=== PATIENT | male | born 1980 | race African-American/Black ===

== ENCOUNTER 2020-07-09 17:52 | Inpatient (IN) | payer SELFPAY ==
[~2020-07-09] VITALS: Ht 188 cm; Wt 72.6 kg
[2020-07-09] MEDS ORDERED: SODIUM CHLORIDE 0.9% 1,000 ML IV ONE (18:23)
[2020-07-09 18:47] LABS: CLARITY URINE CLEAR (CLEAR); COLOR URINE YELLOW (YELLOW); KETONES URINE 4+ (NEGATIVE); LEUKOCYTE ESTERASE URINE NEGATIVE (NEGATIVE); NITRITE URINE NEGATIVE (NEGATIVE); OCCULT BLOOD URINE NEGATIVE (NEGATIVE); PROTEIN URINE NEGATIVE (NEGATIVE); SPECIFIC GRAVITY URINE 1.029 (1.005-1.030); UROBILINOGEN URINE 0.2 E.U./dL (0.2-1.0)
[2020-07-09 18:53] LABS: EOSINOPHILS % 0.4 % (0.0-5.0); HEMATOCRIT. 41.5 % (42.0-52.0); HEMOGLOBIN. 13.4 g/dL (14.0-18.0); LYMPHOCYTES % 12.4 % (20.0-50.0); MEAN CORPUSCULAR HEMOGLOBIN 31.2 pg (28.0-32.0); MEAN CORPUSCULAR VOLUME 96.4 fL (80.0-94.0); MEAN PLATELET VOLUME 9.4 fl (7.4-10.4); MONOCYTES % 7.9 % (2.0-8.0); NEUTROPHILS % 78.3 % (40.0-76.0); PLATELET 228 x1000/uL (130-400); RED BLOOD CELL COUNT 4.31 mill/uL (4.7-6.1); RED CELL DISTRIBUTION WIDTH 14.1 % (11.6-14.6)
[2020-07-09 18:56] LABS: CHLORIDE 92 mEq/L (98-107)
[2020-07-09 19:18] LABS: PROTHROMBIN TIME 10.1 sec (9.6-11.0)
[2020-07-09] MEDS ORDERED: INSULIN REGULAR (DRIP) 100 UNITS in SODIUM CHLORIDE 0.9% 100 ML IV ONE (19:28)
[2020-07-09 20:16] LABS: BG BASE EXCESS -15.5 mmol/L (-2.0-2.0); BG CARBOXYHEMOGLOBIN 1.9 % (0.5-1.5); BG DEOXYHEMOGLOBIN 2.6 % (0.0-5.0); BG FRACTION INSPIRED OXYGEN 21; BG HCO3 ACT 10.3 mmol/L (22.0-26.0); BG METHEMOGLOBIN 0.4 % (0.0-1.5); BG OXYGEN SATURATION 97.3 % (92.0-98.5); BG OXYHEMOGLOBIN 95.1 % (94.0-97.0); BG PCO2 25.1 mmHg (35.0-45.0); BG PH 7.229 (7.350-7.450); BG PO2 106.2 mmHg (75.0-100.0); BG SAMPLE SITE RIGHT RADIAL; BG TOTAL HEMOGLOBIN 13.8 g/dL (12.0-18.0); BG VENT MODE ROOM AIR
[2020-07-09 20:44] LABS: CHLORIDE 95 mEq/L (98-107)
[2020-07-09 20:50] LABS: PHOSPHORUS 4.1 mg/dL (2.5-4.9)
[2020-07-10] MEDS ORDERED: CALCIUM CARBONATE 1250MG TABLET (500MG ELEMENTAL CALCIUM) PO ONE (00:15)
[2020-07-10 00:16] LABS: CHLORIDE 105 mEq/L (98-107)
[2020-07-10 02:17] LABS: CHLORIDE 107 mEq/L (98-107)
[2020-07-10 04:00] VITALS: BP 130/77
[2020-07-10 04:45] LABS: BASOPHILS % 1.4 % (0.0-2.0); EOSINOPHILS % 1.2 % (0.0-5.0); HEMATOCRIT. 38.6 % (42.0-52.0); HEMOGLOBIN. 13.1 g/dL (14.0-18.0); MEAN CORPUSCULAR HEMOGLOBIN 31.7 pg (28.0-32.0); MEAN CORPUSCULAR VOLUME 93.2 fL (80.0-94.0); MEAN PLATELET VOLUME 8.4 fl (7.4-10.4); MONOCYTES % 10.1 % (2.0-8.0); NEUTROPHILS % 66.3 % (40.0-76.0); PLATELET 240 x1000/uL (130-400); RED BLOOD CELL COUNT 4.14 mill/uL (4.7-6.1); RED CELL DISTRIBUTION WIDTH 14.2 % (11.6-14.6)
[2020-07-10 04:50] LABS: CHLORIDE 107 mEq/L (98-107)
[2020-07-10 05:06] VITALS: BP 130/77
[2020-07-10] MEDS ORDERED: DEXTROSE 50% WATER 50ML SYRINGE IV PRN ×2 (06:00)
[2020-07-10] MEDS ORDERED: ONDANSETRON HCL 4MG/2ML INJ IV PRN (06:00)
[2020-07-10] MEDS ORDERED: INSNPH SUBCUT (06:00)
[2020-07-10] MEDS: BLOOD SUGAR DIAGNOSTIC STRIP TEST SCH ×4 (06:36→21:24)
[2020-07-10] MEDS ORDERED: BLOOD SUGAR DIAGNOSTIC STRIP TEST SCH (07:20)
[2020-07-10] MEDS ORDERED: INSULIN LISPRO 100 UNITS/ML SUBCUT SCH (07:50)
[2020-07-10] MEDS ORDERED: METFORMIN HCL 500MG TABLET PO SCH (07:50)
[2020-07-10] MEDS ORDERED: INSULIN LISPRO (LOW DOSE) 100 UNITS/ML SUBCUT SCH (07:50)
[2020-07-10 08:00] VITALS: BP 122/63
[2020-07-10] MEDS: FAMOTIDINE 20MG TABLET PO SCH ×2 (08:19→21:24)
[2020-07-10] MEDS: METFORMIN HCL 500MG TABLET PO SCH ×2 (08:19→17:32)
[2020-07-10] MEDS: INSULIN LISPRO 100 UNITS/ML SUBCUT SCH ×5 (08:21→21:00)
[2020-07-10] MEDS ORDERED: ENOXAPARIN 40MG/0.4ML SYR SUBCUT SCH (09:00)
[2020-07-10] MEDS ORDERED: LANTUSUD SUBCUT (09:16)
[2020-07-10] MEDS: ENOXAPARIN 40MG/0.4ML SYR SUBCUT SCH (09:48)
[2020-07-10] MEDS ORDERED: INSULIN GLARGINE UD 100 UNITS/ML SYR SUBCUT SCH ×3 (10:00→22:00)
[2020-07-10 12:00] VITALS: BP 123/57
[2020-07-10 12:16] LABS: CHLORIDE 100 mEq/L (98-107)
[2020-07-10 12:26] LABS: LDL CHOLESTEROL 73 mg/dL (5-100)
[2020-07-10 12:27] LABS: HDL CHOLESTEROL 64 mg/dL (40-59)
[2020-07-10 13:22] LABS: BASOPHILS % 1.2 % (0.0-2.0); EOSINOPHILS % 1.5 % (0.0-5.0); HEMATOCRIT. 37.5 % (42.0-52.0); HEMOGLOBIN. 12.5 g/dL (14.0-18.0); LYMPHOCYTES % 19.8 % (20.0-50.0); MEAN CORPUSCULAR HEMOGLOBIN 31.7 pg (28.0-32.0); MEAN PLATELET VOLUME 9.3 fl (7.4-10.4); MONOCYTES % 8.8 % (2.0-8.0); NEUTROPHILS % 68.7 % (40.0-76.0); PLATELET 217 x1000/uL (130-400); RED BLOOD CELL COUNT 3.95 mill/uL (4.7-6.1); RED CELL DISTRIBUTION WIDTH 14.7 % (11.6-14.6)
[2020-07-10] MEDS ORDERED: INSULIN LISPRO 100 UNITS/ML SUBCUT NR (14:00)
[2020-07-10] MEDS: KETOROLAC 30MG/ML VIAL IV PRN ×2 (14:02→21:25)
[2020-07-10 16:00] VITALS: BP 138/71
[2020-07-10 16:27] LABS: CHLORIDE 101 mEq/L (98-107)
[2020-07-10] MEDS: SODIUM CHLORIDE 0.9% 1,000 ML IV SCH (17:36)
[2020-07-10 19:04] LABS: PHOSPHORUS 2.5 mg/dL (2.5-4.9)
[2020-07-10 20:00] VITALS: BP 135/75
[2020-07-10 21:43] LABS: CHLORIDE 106 mEq/L (98-107)
[2020-07-11] VITALS: BP 118/72
[2020-07-11] MEDS: SODIUM CHLORIDE 0.9% 1,000 ML IV SCH ×2 (00:06→08:30)
[2020-07-11 00:15] LABS: *AMPHETAMINES SCREEN URINE NEGATIVE (NEGATIVE); *BARBITURATES SCREEN URINE NEGATIVE (NEGATIVE); *BENZODIAZEPINES SCREEN URINE NEGATIVE (NEGATIVE); *COCAINE SCREEN URINE PRESUMTIVE POSITIVE (NEGATIVE); METHADONE URINE SCREEN NEGATIVE (NEGATIVE)
[2020-07-11 00:16] LABS: CANNABINOID URINE SCREEN PRESUMTIVE POSITIVE (NEGATIVE); OPIATES URINE SCREEN NEGATIVE (NEGATIVE); PHENCYCLIDINE URINE SCREEN PRESUMTIVE POSITIVE (NEGATIVE)
[2020-07-11 04:00] VITALS: BP 103/51
[2020-07-11] MEDS: KETOROLAC 30MG/ML VIAL IV PRN (05:09)
[2020-07-11 06:45] LABS: CHLORIDE 109 mEq/L (98-107)
[2020-07-11] MEDS: INSULIN LISPRO 100 UNITS/ML SUBCUT SCH ×3 (07:20→11:58)
[2020-07-11] MEDS: BLOOD SUGAR DIAGNOSTIC STRIP TEST SCH ×2 (07:22→11:57)
[2020-07-11 08:03] VITALS: BP 119/78
[2020-07-11] MEDS ORDERED: POTASSIUM CHLORIDE 20MEQ TABLET SR PO NR (09:00)
[2020-07-11] MEDS: ENOXAPARIN 40MG/0.4ML SYR SUBCUT SCH (09:04)
[2020-07-11] MEDS: FAMOTIDINE 20MG TABLET PO SCH (09:04)
[2020-07-11] MEDS: METFORMIN HCL 500MG TABLET PO SCH (09:04)
[2020-07-11] MEDS ORDERED: INSULIN GLARGINE UD 100 UNITS/ML SYR SUBCUT SCH (10:00)
[2020-07-11 10:59] VITALS: BP 119/78
[2020-07-11 11:44] VITALS: BP 136/77
== END 2020-07-11 15:13 | disposition home or self-care (01) | DRG 420 ==
LOC: ER 17:52 → CANRESERV 07-10 03:32 → ENRESERV 07-10 03:32 → EDBEDREQTM 07-10 04:25 → EDBEDREQSVC 07-10 04:25 → ENRESERV 07-10 04:29 → 6WST 07-10 05:20
PROVIDERS: ADMIT Internal Medicine; ATTEND Internal Medicine
DX: E10.10 Type 1 diabetes mellitus with ketoacidosis without coma (principal); D64.9 Anemia, unspecified; E87.1 Hypo-osmolality and hyponatremia; E87.8 Other disorders of electrolyte and fluid balance, not elsewhere classified; Z79.4 Long term (current) use of insulin; Z79.899 Other long term (current) drug therapy
CPT/HCPCS: 36415; 36600; 80048; 80053; 80061; 80305; 81003; 82010; 82375; 82805; 82962; 83036; 83735; 84100; 84484; 85025; 93005; 99285; J1650; J1815; J1885; J7030; J7050

== ENCOUNTER 2024-08-07 10:49 | Emergency (ER) | payer MEDICAID ==
[~2024-08-07] VITALS: Ht 188 cm; Wt 79.4 kg
[~2024-08-07 10:49] MED LIST: LANTUSUD SUBCUT
[2024-08-07 10:53] VITALS: TEMP 98.6; O2SAT 98
[2024-08-07 10:54] VITALS: O2SAT 98
[2024-08-07 12:02] VITALS: BP 127/80; PULSE 91; RESP 18
[2024-08-07] MEDS: KETOROLAC 15MG/ML VIAL IM ONE (12:02)
[2024-08-07] MEDS ORDERED: NAPR-1176 MT (12:37)
[2024-08-07] MEDS ORDERED: LIDO700A15 TP (12:37)
== END 2024-08-07 13:12 | disposition home or self-care (01) ==
LOC: ER 10:49
DX: M25.511 Pain in right shoulder (principal); I25.2 Old myocardial infarction; I10 Essential (primary) hypertension; E11.9 Type 2 diabetes mellitus without complications
CPT/HCPCS: 73030; 96372; 99283; J1885; Z7610

== ENCOUNTER 2025-02-05 03:00 | Emergency (ER) | payer OTHER ==
[~2025-02-05 03:00] MED LIST changes: +LIDO-53 TP; +NAPR-1176 MT
== END 2025-02-05 03:38 | disposition left against medical advice (07) ==
LOC: ER 03:00
DX: I10 Essential (primary) hypertension (principal); Z53.21 Procedure and treatment not carried out due to patient leaving prior to being seen by health care provider; Z79.899 Other long term (current) drug therapy

== ENCOUNTER 2025-02-05 04:28 | Emergency (ER) | payer MEDICAID, OTHER ==
[~2025-02-05] VITALS: Ht 185.4 cm; Wt 79.5 kg
[~2025-02-05 04:28] MED LIST changes: -LIDO-53 TP; +LIDO700A15 TP
[2025-02-05 04:45] VITALS: BP 149/87; O2SAT 98
[2025-02-05 04:46] VITALS: PULSE 103; RESP 20; TEMP 37.1; O2SAT 98
== END 2025-02-05 05:46 | disposition left against medical advice (07) ==
LOC: ER 04:28
DX: I25.2 Old myocardial infarction (principal); I10 Essential (primary) hypertension; E11.9 Type 2 diabetes mellitus without complications; Z53.21 Procedure and treatment not carried out due to patient leaving prior to being seen by health care provider
CPT/HCPCS: 99281